=== PATIENT | female | born 2000 | race Asian ===

== ENCOUNTER 2019-08-10 12:18 | Inpatient (IN) ==
[2019-08-10] MEDS ORDERED: DEXAMETHASONE **PF** INJ 10 MG/ML VIAL IV ONE (12:38)
[2019-08-10] MEDS ORDERED: AMPICILLIN/SULBACTAM SOD 3,000 MG in 0.9 % SODIUM CHLORIDE 100 ML IV STA (12:39)
[2019-08-10] MEDS ORDERED: SODIUM CHLORIDE 0.9% 1000ML 1,000 ML IV SCH (12:45)
--- NOTE | 2019-08-10 12:48 | Emergency Department Note ---
History of Present Illness General Chief complaint: Sore Throat Stated complaint: SORETHROAT Time Seen by Provider: 08/10/19 12:25 History of Present Illness Maximum Pain Intensity: 4 This is a 18-year-old female that presents to the emergency department via private vehicle with complaints of "sore throat". The patient notes that she began with a sore throat about 1 week ago. No trauma or injury. She states that she was doing well with bilateral sore throat and then on the second or third day into the illness she began with some right sided pain rather than left side. She states that then it hurt to swallow and beginning 2 days ago the pain really increased and now she notes she has been drooling at nighttime. She has had decreased appetite secondary to this. She is able to manage secretions. She denies any recent travel. She states that she lives alone and has tried to stay at her residence for the past month and has not traveled or gone out in public. No trouble breathing. She also notes right-sided ear pain. No fevers, chills, coughing, abdominal pain, chest pain or shortness of breath. Pain is increased in the throat with swallowing. She also notes pain to the right anterior side of the neck. No dental pain at this time. Overall discomfort is a 4/10. She denies any pertinent past medical history, surgeries or allergies. She has been using Advil and Tylenol some mild relief. No history of peritonsillar abscess. She called [facility] and was instructed to come here. She does feel anxious. Home Medications Home Medications Medication Instructions Recorded Confirmed Type No Known Home Medications 08/10/19 08/10/19 History Allergies Allergy/AdvReac Type Severity Reaction Status Date / Time No Known Allergies Allergy Unverified 08/10/19 12:58 Past Med/Surg History Medical History (Updated 08/10/19 @ 12:45 by Sahil Donnelly PA-C) No pertinent past medical history Surgical History No pertinent past surgical history Social History Feels Safe at Home: Yes Smoking Status: Never smoker Review of Systems A total of 10 systems reviewed and were otherwise negative Physical Exam Vital Signs Vital Signs - 24 hr 08/10/19 12:21 08/10/19 14:18 Temperature 37.2 C Temperature Source Oral Pulse Rate 109 H Pulse Rate [Left Finger] 98 H Pulse Rhythm Regular Pulse Rhythm [Left Finger] Regular Pulse Strength Normal Pulse Strength [Left Finger] Normal Respiratory Rate 18 20 Respiratory Effort / Characteristics Non-Labored Spontaneous Non-Labored Spontaneous Respiratory Depth Normal Normal Respiratory Pattern Regular Blood Pressure 122/73 Blood Pressure [Right Arm] 111/69 Blood Pressure Mean 89 Blood Pressure Mean [Right Arm] 83 Blood Pressure Position Sitting Blood Pressure Position [Right Arm] Sitting Pulse Oximetry 97 99 Oxygen Delivery Method Room Air Room Air Sepsis Recent Fever Within 48 Hours No Sepsis Action Taken by Nursing No Action Required VITAL SIGNS - Vital signs and nursing notes were reviewed. Stable, mildly tachycardic. GENERAL -18-year-old female appearing her stated age who is in no acute distress. Communicates well with provider and answers questions appropriately. SKIN - Without rashes. No meningeal or petechial rash. HEAD - NC/AT. EYES - PERRL with EOMI bilaterally. Sclera anicteric. EARS - No deformities of external structures noted on gross examination bilaterally. No evidence of otitis media. No TM perforation. NOSE - Midline and without cyanosis. No epistaxis or purulent drainage noted. Septum midline without deviation or septal hematoma noted. MOUTH/OROPHARYNX - Without perioral cyanosis. Buccal mucosa pink and moist and without leukoplakia. Tongue midline with equal elevation of palate bilaterally. There is right-sided 3+ tonsillar hypertrophy with slight deviation of the uvula to the left. There is mild right-sided soft palate involvement with erythema with mild edema. No exudate. The airway is widely patent. No evidence of Carlos's angina. NECK - Neck with FROM. Supple to palpation. Right-sided anterior cervical ly mphadenopathy noted. No nuchal rigidity. LUNGS - Chest wall symmetric without accessory muscle use, intercostals retractions, or central cyanosis. Normal vesicular breath sounds CTA B/L. No wheezes, rales, or rhonchi appreciated. CARDIAC - RRR with S1/S2. No murmur, rubs, or gallops appreciated. EXTREMITIES - No clubbing or peripheral cyanosis. No pretibial edema present. +5/5 strength noted in UE/LE bilaterally. NEUROLOGIC - Cranial nerves II through XII grossly intact. Sensory intact to light touch throughout. PSYCH - A&O, and cooperates fully with examiner. Pt is very pleasant and interac ts well with examiner. Course Administered Medications Ioversol (Optiray 320 100ml) 94 ml IV ONCE PRN PRN Reason: Interaction Checking Stop: 08/14/19 13:43 Last Admin: 08/10/19 13:45 Dose: 94 ml Documented by: [id number] Discontinued Medications Dexamethasone Sodium Phosphate (Decadron Pf) 10 mg IV NOW ONE Stop: 08/10/19 12:39 Last Admin: 08/10/19 12:49 Dose: 10 mg Documented by: [id number] Sodium Chloride (Nss 1000ml) 1,000 mls @ 999 mls/hr IV .Q1H1M KANDICE Stop: 08/10/19 13:45 Last Infusion: 08/10/19 14:32 Dose: 0 mls/hr Documented by: [id number] Admin: 08/10/19 12:49 Dose: 999 mls/hr Documented by: [id number] Ampicillin Sodium/Sulbactam Sodium 3,000 mg/ Sodium Chloride 108 mls @ 200 mls/hr IV NOW STA; Protocol Stop: 08/10/19 13:11 Last Infusion: 08/10/19 14:32 Dose: 0 mls/hr Documented by: [id number] Admin: 08/10/19 13:06 Dose: 200 mls/hr Documented by: [id number] Medical Decision Making Laboratory Data Result diagrams: 08/10/19 12:44 08/10/19 12:44 Lab Results 08/10/19 08/10/19 08/10/19 Range/Units 12:44 12:44 12:44 WBC 12.06 H (4.8-10.8) K/uL RBC 4.38 (4.2-5.4) M/uL Hgb 13.5 (12.0-16.0) g/dL Hct 39.4 (37-47) % MCV 90.0 (80-100) fL MCH 30.8 (25-34) pg MCHC 34.3 (32-36) g/dL RDW Std Deviation 40.5 (36.4-46.3) fL RDW Coeff of Josiah 12.1 (11.5-14.5) % Plt Count 264 (130-400) K/uL MPV 10.3 (7.4-10.4) fL Immature Gran % (Auto) 0.2 % Neut % (Auto) 77.5 % Lymph % (Auto) 15.1 % [place] % (Auto) 4.2 % Eos % (Auto) 2.8 % Baso % (Auto) 0.2 % Immature Gran # (Auto) 0.02 (0.00-0.02) K/uL Neut # (Auto) 9.34 H (1.4-6.5) K/uL Lymph # (Auto) 1.82 (1.2-3.4) K/uL [place] # (Auto) 0.51 (0.11-0.59) K/uL Eos # (Auto) 0.34 (0-0.5) K/uL Baso # (Auto) 0.03 (0-0.2) K/uL Sodium 140 (136-145) mmol/L Potassium 4.0 (3.5-5.1) mmol/L Chloride 107 (98-107) mmol/L Carbon Dioxide 29 (21-32) mmol/L Anion Gap 4.0 (3-11) BUN 11 (7-18) mg/dl Creatinine 0.65 (0.6-1.2) mg/dl Est Cr Clr Drug Dosing 124.2 ml/min Est GFR ( Amer) 148.1 Est GFR (Non-Af Amer) 127.8 BUN/Creatinine Ratio 17.6 (10-20) Glucose 94 (70-99) mg/dl Calcium 9.9 (8.5-10.1) mg/dl Total Bilirubin 0.4 (0.2-1) mg/dl AST 11 L (15-37) U/L ALT 20 (12-78) U/L Alkaline Phosphatase 46 (45-117) U/L Total Protein 8.7 H (6.4-8.2) gm/dl Albumin 4.2 (3.4-5.0) gm/dl Globulin 4.5 H (2.5-4.0) gm/dl Albumin/Globulin Ratio 0.9 (0.9-2) POC Ur Test (NEG) Monoscreen Negative (Negative) 08/10/19 Range/Units 14:00 WBC (4.8-10.8) K/uL RBC (4.2-5.4) M/uL Hgb (12.0-16.0) g/dL Hct (37-47) % MCV (80-100) fL MCH (25-34) pg MCHC (32-36) g/dL RDW Std Deviation (36.4-46.3) fL RDW Coeff of Josiah (11.5-14.5) % Plt Count (130-400) K/uL MPV (7.4-10.4) fL Immature Gran % (Auto) % Neut % (Auto) % Lymph % (Auto) % [place] % (Auto) % Eos % (Auto) % Baso % (Auto) % Immature Gran # (Auto) (0.00-0.02) K/uL Neut # (Auto) (1.4-6.5) K/uL Lymph # (Auto) (1.2-3.4) K/uL [place] # (Auto) (0.11-0.59) K/uL Eos # (Auto) (0-0.5) K/uL Baso # (Auto) (0-0.2) K/uL Sodium (136-145) mmol/L Potassium (3.5-5.1) mmol/L Chloride (98-107) mmol/L Carbon Dioxide (21-32) mmol/L Anion Gap (3-11) BUN (7-18) mg/dl Creatinine (0.6-1.2) mg/dl Est Cr Clr Drug Dosing ml/min Est GFR ( Amer) Est GFR (Non-Af Amer) BUN/Creatinine Ratio (10-20) Glucose (70-99) mg/dl Calcium (8.5-10.1) mg/dl Total Bilirubin (0.2-1) mg/dl AST (15-37) U/L ALT (12-78) U/L Alkaline Phosphatase (45-117) U/L Total Protein (6.4-8.2) gm/dl Albumin (3.4-5.0) gm/dl Globulin (2.5-4.0) gm/dl Albumin/Globulin Ratio (0.9-2) POC Ur Test NEG (NEG) Monoscreen (Negative) Imaging Data Radiologist's Impression: CT SCAN OF THE NECK WITH IV CONTRAST CLINICAL HISTORY: Right-sided tonsillar pain. Tonsillar hypertrophy. COMPARISON STUDY: No priors. TECHNIQUE: Following the IV administration of 94 cc of Optiray 320, CT scan of the soft tissues of the neck was performed from the skull base to the upper chest. Images are reviewed in the axial, sagittal, and coronal planes. IV contrast was administered without complication. A dose lowering technique was utilized adhering to the principles of ALARA. CT DOSE: 340.24 mGy.cm FINDINGS: Pharynx: The right tonsils are enlarged and heterogeneous. There is phlegmonous change with a 1.4 cm peritonsillar abscess seen on image #138. This mildly narrows the adjacent airway. The left tonsils are heterogeneous with no abscess seen. There is no evidence of mass lesion. The vocal cords are symmetric. The parapharyngeal fat is maintained. The prevertebral/retropharyngeal soft tissues are within normal limits. The epiglottis is normal. Lymphadenopathy: Mildly enlarged right cervical lymph nodes measure up to 1.9 cm in length. These are likely on a reactive basis. Thyroid: There are 2 subcentimeter low-attenuation nodules in the right lobe of the thyroid gland. The thyroid gland is normal in size and attenuation. Salivary glands: The parotid and submandibular glands are within normal limits. Brain parenchyma: The visualized brain parenchyma at the skull base is normal in appearance. Vascular structures: The carotid arteries and jugular veins are patent. Skeletal structures: Imaged portions of the calvarium at the skull base are within normal limits. The cervical spine appears intact. Sinuses and mastoids: Small retention cysts in the maxillary antra measure up to 1.8 cm. The visualized paranasal sinuses are otherwise clear. The mastoid air cells are well pneumatized. Lung apices: Visualized apical lung parenchyma is clear. IMPRESSION: 1. There is a 1.4 cm right peritonsillar abscess with surrounding inflammation and phlegmonous change. 2. This mildly narrows the adjacent airway. 3. Mildly enlarged right cervical lymph nodes are likely on a reactive basis. ACT 112: Negative or not required by law. Electronically signed by: Rafat Holt M.D. 08/10/2019 2:04 PM [facility] Narrative Patient was seen and evaluated as above in room in room C6. Review was performed of nursing notes and vital signs. No previous past medical, surgical or allergy history. After obtaining a thorough history and physical examination the above work up was performed. Patient presents to us today with a sore throat x1 week now with strictly unilateral involvement on the right. There is 3+ tonsillar hypertrophy with some soft palate involvement which is mild. No trismus. Patient notes some drooling at nighttime. Patient believes her voice is "muffled" and I also agree with on examination. No recent travel. No other risk for coronavirus. She denies any other pertinent symptoms. IV access was established. She was hydrated with fluids, given IV Decadron as well as antibiotics. This was secondary to presentation and tachycardic state. Basic labs were also drawn. Rapid strep and mono were also obtained. She declined analgesics. Strep test negative, culture pending. Given the patient's presentation here today I did elect to discuss the findings with the on-call ENT doctor, Dr. Benavidez. We discussed the case and a CT scan soft tissue neck with contrast was recommended. This was ordered. Results as above. There is a small abscess. I we discussed the findings with Dr. Benavidez at this time medical management the admission to the hospital is recommended with IV Unasyn and IV Decadron. He recommended 8 mg of Decadron IV every 8 hours. He notes that he can be called with any questions or concerns. Case then discussed with the hospitalist. Please refer to further documentation regarding her stay. While in the department, I personally reevaluated the patient several times and each time the patient was found to be resting comfortably. The patient was educated upon management, educated upon todays findings/results. In the evaluation and treatment of this patient the following differential diagnoses were entertained: Strep pharyngitis, viral pharyngitis, allergic rhinitis with post nasal drip, airway obstruction, head/neck neoplasias, GERD, peritonisllar abscess, epiglottitis, cajp-fvun-ano-mouth disease, herpes simplex, mononucleosis, pneumonia, retropharyngeal abscess, scarlet fever, among others. Impression & Plan Abscess, peritonsillar, Change in voice, Sore throat Discharge Plan Visit Data Chief Complaint: Sore Throat Stated Complaint: SORETHROAT ED Provider: Rafat Hanson ED Midlevel Provider: Sahil Donnelly Discharge Problem: Abscess, peritonsillar, Change in voice, Sore throat Patient Disposition: Admitted As Inpatient Condition: Good Forms Stand Alone Forms: My [facility] Prescriptions Prescriptions: No Action No Known Home Medications RF: 0 Referrals [facility]errals: [facility] [Primary Care Provider] -
[2019-08-10 12:56] LABS: Basophils # (auto) 0.03 K/uL (0-0.2); Basophils % (auto) 0.2 %; Eosinophils # (auto) 0.34 K/uL (0-0.5); Eosinophils % (auto) 2.8 %; Hematocrit (blood only) 39.4 % (37-47); Hemoglobin 13.5 g/dL (12.0-16.0); Immature Granulocytes # (auto) 0.02 K/uL (0.00-0.02); Immature Granulocytes % (auto) 0.2 %; Lymphocytes # (auto) 1.82 K/uL (1.2-3.4); Lymphocytes % (auto) 15.1 %; Mean Corpuscular Hemoglobin 30.8 pg (25-34); Mean Corpuscular Hgb Conc 34.3 g/dL (32-36); Mean Platelet Volume 10.3 fL (7.4-10.4); Monocytes # (auto) 0.51 K/uL (0.11-0.59); Monocytes % (auto) 4.2 %; Neutrophils # (auto) 9.34 K/uL (1.4-6.5); Neutrophils % (auto) 77.5 %; Platelet Count 264 K/uL (130-400); RDW Coefficient of Variation 12.1 % (11.5-14.5); RDW Standard Deviation 40.5 fL (36.4-46.3); Red Blood Count 4.38 M/uL (4.2-5.4); White Blood Count 12.06 K/uL (4.8-10.8)
[2019-08-10 13:12] LABS: Albumin Level 4.2 gm/dl (3.4-5.0); BUN Creatinine Ratio 17.6 (10-20); Calcium 9.9 mg/dl (8.5-10.1); Creatinine Clr Calc Pharmacy 124.2 ml/min; Est GFR (African American) 148.1; Est GFR (Non-African American) 127.8
[2019-08-10 13:15] LABS: Albumin Globulin Ratio 0.9 (0.9-2); Bilirubin,Total 0.4 mg/dl (0.2-1); Globulin 4.5 gm/dl (2.5-4.0); Total Protein 8.7 gm/dl (6.4-8.2)
[2019-08-10] MEDS ORDERED: IOVERSOL 100ml IV PRN (13:44)
--- NOTE | 2019-08-10 14:05 | CT Scan Report ---
CT SCAN OF THE NECK WITH IV CONTRAST CLINICAL HISTORY: Right-sided tonsillar pain. Tonsillar hypertrophy. COMPARISON STUDY: No priors. TECHNIQUE: Following the IV administration of 94 cc of Optiray 320, CT scan of the soft tissues of e neck was performed from the skull base to the upper chest. Images are reviewed in the axial, sagitt al, and coronal planes. IV contrast was administered without complication. A dose lowering techniqu e was utilized adhering to the principles of ALARA. CT DOSE: 340.24 mGy.cm FINDINGS: Pharynx: The right tonsils are enlarged and heterogeneous. There is phlegmonous change with a 1.4 cm peritonsillar abscess seen on image #138. This mildly narrows the adjacent airway. The left tonsils a re heterogeneous with no abscess seen. There is no evidence of mass lesion. The vocal cords are symme tric. The parapharyngeal fat is maintained. The prevertebral/retropharyngeal soft tissues are within normal limits. The epiglottis is normal. Lymphadenopathy: Mildly enlarged right cervical lymph nodes measure up to 1.9 cm in length. These are likely on a reactive basis. Thyroid: There are 2 subcentimeter low-attenuation nodules in the right lobe of the thyroid gland. e thyroid gland is normal in size and attenuation. Salivary glands: The parotid and submandibular glands are within normal limits. Brain parenchyma: The visualized brain parenchyma at the skull base is normal in appearance. Vascular structures: The carotid arteries and jugular veins are patent. Skeletal structures: Imaged portions of the calvarium at the skull base are within normal limits. The cervical spine appears intact. Sinuses and mastoids: Small retention cysts in the maxillary antra measure up to 1.8 cm. The visualiz ed paranasal sinuses are otherwise clear. The mastoid air cells are well pneumatized. Lung apices: Visualized apical lung parenchyma is clear. IMPRESSION: 1. There is a 1.4 cm right peritonsillar abscess with surrounding inflammation and phlegmonous change . 2. This mildly narrows the adjacent airway. 3. Mildly enlarged right cervical lymph nodes are likely on a reactive basis. ACT 112: Negative or not required by law. Electronically signed by: Rafat Holt M.D. 08/10/2019 2:04 PM
[2019-08-10] MEDS ORDERED: STAT IV Infusion **Titration per Protocol STA (14:09)
[2019-08-10] MEDS ORDERED: dilTIAZem HCl 5 MG/ML 5 ML VIAL IV STA (14:09)
[2019-08-10] MEDS ORDERED: dilTIAZem HCL 125 MG in DEXTROSE 5% 100 ML IV SCH (14:15)
[2019-08-10] MEDS ORDERED: ACETAMINOPHEN 325 MG TAB PO PRN (15:28)
[2019-08-10] MEDS ORDERED: ONDANSETRON INJ 2 MG/ML 2 ML VIAL IV PRN (15:28)
--- NOTE | 2019-08-10 15:38 | History & Physical Report ---
Date of Service August 10, 2019 Assessment & Plan (1) Abscess, peritonsillar: - Admit to PCU, no needs for ICU at this time with no airway compromise - Patient with hot potato voice, drooling, difficulty swallowing, dysphagia - Administered a dose of Unasyn as well as dexamethasone in the ER, will continue these -ENT was contacted, in light of COVID-19 limited availability--> made recommendations over the phone to ER PA -Continue IV antibiotics with Unasyn, consider repeat imaging of CT tomorrow to ensure improvement, CT reveals 1.4 cm peritonsillar abscess, mildly narrows the adjacent airway. enlarged right cervical lymph nodes. -WBC = 12 K, follow a.m. 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 She reports it feels very sore on the right backside of her throat and has had difficulty eating food within the past day, and difficulty with swallowing thin liquids at times. She denies any difficulty breathing, shortness of breath, cough, loss of taste or smell or travel history. 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 ER contacted ENT for possible I&D however their service is working on limited service capability in light of COVID-19. Patient was started on IV Unasyn as well as dexamethasone 10 mg IV. She reports that after these medications were administered she does feel somewhat improved at this point. Denies any fevers chills or sweats. No other acute symptoms. Allergies Allergy/AdvReac Type Severity Reaction Status Date / Time No Known Allergies Allergy Unverified 08/10/19 12:58 Home Medications Home Medications Medication Instructions Recorded Confirmed Type No Known Home Medications 08/10/19 08/10/19 History Past Med/Surg History Medical History No pertinent past medical history Surgical History No pertinent past surgical history Family History (Updated 08/10/19 @ 17:54 by Ana Garcia MD) Other Family history non-contributory Social History Preferred Language: Noemi Albanian Communication Ability: Effective Beliefs That Will Affect Care: None Current Living Situation: Alone Other Information That Helps Us Care for You: No Feels Safe at Home: Yes Safety Concerns: Feels Safe At This Time Smoking Status: Never smoker Hx Alcohol Use: No Hx Substance Use: No Review of Systems Review of Systems: Constitutional: No fever, sweats or chills Eyes: No diplopia, no worsening or blurred vision ENT: normal hearing, + Pain with swallowing, increased swelling in the right posterior throat Respiratory: No cough, sputum, dyspnea at rest or on exertion Cardiovascular: No chest pain, tightness or palpitations Abdomen: No pain, nausea, vomiting, diarrhea or constipation Musculoskeletal: No joint pain, calf pain, swelling Neurologic: No weakness, numbness/tingling, or balance problems Psychiatric: No anxiety or depression Skin: No rash or itch Physical Exam Physical Exam: General: awake, alert, no apparent distress Head: Normocephalic, atraumatic ENT: PERRL, EOMI, no pharyngeal exudate, + right peritonsillar edema does not cross the midline, +uvula is midline, no purulent material draining from region of edema. + pain and edema with palpation along the ant cervical chain. Chest: Clear to auscultation, on room air, no adventitious breath sounds Cardiac: Regular rate and rhythm, no murmur, no JVD, normal peripheral pulses, good capillary refill Abdominal: NABS x 4 quadrants, soft, nontender to palpation, no rebound, guarding or tenderness Extremities: Normal inspection, no peripheral edema or erythema, calfs nontender to palpation Psych: Normal mood and affect Neuro: AAO x 3, strength intact bilaterally and rated 5/5, no motor deficits, sp eech is clear, no peripheral sensory deficits Results & Data Results & Data ([facility]) Vital Signs (Past 12 Hours) Vital Signs Temp Pulse Pulse Resp BP BP Pulse Ox 08/10/19 14:18 98 H 20 111/69 99 08/10/19 12:21 37.2 C 109 H 18 122/[address] SCAN OF THE NECK WITH IV CONTRAST CLINICAL HISTORY: Right-sided tonsillar pain. Tonsillar hypertrophy. COMPARISON STUDY: No priors. TECHNIQUE: Following the IV administration of 94 cc of Optiray 320, CT scan of the soft tissues of the neck was performed from the skull base to the upper chest. Images are reviewed in the axial, sagittal, and coronal planes. IV contrast was administered without complication. A dose lowering technique was utilized adhering to the principles of ALARA. CT DOSE: 340.24 mGy.cm FINDINGS: Pharynx: The right tonsils are enlarged and heterogeneous. There is phlegmonous change with a 1.4 cm peritonsillar abscess seen on image #138. This mildly narrows the adjacent airway. The left tonsils are heterogeneous with no abscess seen. There is no evidence of mass lesion. The vocal cords are symmetric. The parapharyngeal fat is maintained. The prevertebral/retropharyngeal soft tissues are within normal limits. The epiglottis is normal. Lymphadenopathy: Mildly enlarged right cervical lymph nodes measure up to 1.9 cm in length. These are likely on a reactive basis. Thyroid: There are 2 subcentimeter low-attenuation nodules in the right lobe of the thyroid gland. The thyroid gland is normal in size and attenuation. Salivary glands: The parotid and submandibular glands are within normal limits. Brain parenchyma: The visualized brain parenchyma at the skull base is normal in appearance. Vascular structures: The carotid arteries and jugular veins are patent. Skeletal structures: Imaged portions of the calvarium at the skull base are within normal limits. The cervical spine appears intact. Sinuses and mastoids: Small retention cysts in the maxillary antra measure up to 1.8 cm. The visualized paranasal sinuses are otherwise clear. The mastoid air cells are well pneumatized. Lung apices: Visualized apical lung parenchyma is clear. IMPRESSION: 1. There is a 1.4 cm right peritonsillar abscess with surrounding inflammation and phlegmonous change. 2. This mildly narrows the adjacent airway. 3. Mildly enlarged right cervical lymph nodes are likely on a reactive basis. ACT 112: Negative or not required by law. Electronically signed by: Rafat Holt M.D. 08/10/2019 2:04 PM Code Status & VTE Plan Code Status Full code - discussed with the pt at bedside Supervising Physician Co-Signing Physician Notes PA Supervision Note: I personally saw and examined the patient. I verified all loco points and agree with PHIL Suero with the following exceptions and/or additions: Pt presents with one week of worsening right sided sore throat and excesive drooling, difficulty with swallowing and painful swallowing in the last day. No fevers/chills at home but was taking ibuprofen and APAP for pain. Had a mild headache and now improved. History reviewed-only suspected PCOS, has irregular menses ROS-no SOB or cough, no ches tpain, no abd pain, no N/V/D, no rashes Vitals reviewed NAD, AAOx3 HEENT: anicteric sclerae, EOMI, OP with +right sided tonsillar enlargement and erythema with deviation of uvula to the left slightly, no exudate, airway appears patent, no stridor, no pain with neck extension; +Right sided cervical tender lymphadenopathy, no neck stiffness; no rhinorrhea CV: RRR no mgr CTAB no wcr Abd +BS soft NT ND Ext no edema Skin no rashes Labs and CT images personally reviewed 18 yo female here with a right sided SUPERVISOR DAIRY SANITATION, proven on CT without significant airway compromise -already improving since administration of IV Decadron and Unasyn in ER -continue Decadron, Unasyn and follow clinically -if not improving or worsening, will ask ENT to come in for needle aspiration and/or tonsillectomy PG Care Time/CCT Total # of Minutes Spent Total Time Spent with Patient: Total time spent is greater than 50% in coordination of care (as documented) at patient's floor/unit and/or counseling patient: Coding Level of Care Code 13731 Initial Inpt Care Lvl 3 Diagnoses Abscess, peritonsillar J36 Leukocytosis D72.829 DVT prophylaxis Z29.9
[2019-08-10] MEDS: SODIUM CHLORIDE 0.9% 1000ML 1,000 ML IV SCH (17:00)
[2019-08-10] MEDS: AMPICILLIN/SULBACTAM SOD 1,500 MG in 0.9 % SODIUM CHLORIDE 100 ML IV SCH (20:52)
[2019-08-10] MEDS: DEXAMETHASONE SOD PHOSPHATE 8 MG in SYRINGE 0 ML IV SCH (20:52)
[2019-08-10] MEDS ORDERED: DEXAMETHASONE SOD PHOSPHATE 4 MG in SYRINGE 0 ML IV SCH (21:00)
[2019-08-10] MEDS ORDERED: DEXAMETHASONE SOD INJ 4 MG/ML VIAL IV SCH ×2 (21:00→22:00)
[2019-08-11] MEDS: SODIUM CHLORIDE 0.9% 1000ML 1,000 ML IV SCH (02:27)
[2019-08-11] MEDS: AMPICILLIN/SULBACTAM SOD 1,500 MG in 0.9 % SODIUM CHLORIDE 100 ML IV SCH ×4 (02:27→20:21)
[2019-08-11] MEDS: DEXAMETHASONE SOD PHOSPHATE 8 MG in SYRINGE 0 ML IV SCH ×3 (06:05→20:55)
[2019-08-11 06:32] LABS: Hematocrit (blood only) 36.5 % (37-47); Hemoglobin 12.6 g/dL (12.0-16.0); Mean Corpuscular Hemoglobin 30.4 pg (25-34); Mean Corpuscular Hgb Conc 34.5 g/dL (32-36); Mean Corpuscular Volume 88.2 fL (80-100); Mean Platelet Volume 10.4 fL (7.4-10.4); Platelet Count 272 K/uL (130-400); RDW Standard Deviation 38.4 fL (36.4-46.3); Red Blood Count 4.14 M/uL (4.2-5.4); White Blood Count 12.01 K/uL (4.8-10.8)
[2019-08-11 07:10] LABS: Alanine Aminotransferase 22 U/L (12-78); Albumin Level 3.5 gm/dl (3.4-5.0); Aspartate Aminotransferase 11 U/L (15-37); BUN Creatinine Ratio 16.8 (10-20); Blood Urea Nitrogen 9 mg/dl (7-18); Calcium 9.3 mg/dl (8.5-10.1); Carbon Dioxide 25 mmol/L (21-32); Chloride 109 mmol/L (98-107); Creatinine Clr Calc Pharmacy 230.4 ml/min; Est GFR (African American) > 150.0; Est GFR (Non-African American) 136.7; Glucose 129 mg/dl (70-99); Potassium 3.7 mmol/L (3.5-5.1); Sodium 140 mmol/L (136-145)
[2019-08-11 07:13] LABS: Albumin Globulin Ratio 0.9 (0.9-2); Alkaline Phosphatase 41 U/L (45-117); Bilirubin,Total 0.3 mg/dl (0.2-1); Globulin 4.1 gm/dl (2.5-4.0); Total Protein 7.6 gm/dl (6.4-8.2)
--- NOTE | 2019-08-11 10:37 | Hospitalist Progress Note ---
Date of Service August 11, 2019 Assessment & Plan (1) Abscess, peritonsillar: CT reveals 1.4 cm peritonsillar abscess, mildly narrows the adjacent airway. enlarged right cervical lymph nodes. 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 Still some pain in the throat and if she tries to open her mouth wide, however much improved overall. No headache, no trouble with eating regular food. Afebrile. Has a dry cough only when throat feels irritated. Completed a virtual consult today with ENT Dr. Benavidez in the room with patient and discussed on phone with him-recommends continuing IV abx and Decadron and one more night's stay in the hospital. Review of Systems Review of Systems: All systems reviewed & are unremarkable except as noted in HPI & below (no diarrhea or nausea; dyspepsia with receiving steroids) Physical Exam Constitutional: WD/WN, vitals as above Eyes: + anicteric sclerae ENMT: Ears: no external ear abnormality Nose: no external nose abnormality Mouth: + oropharynx abnormality (rt tonsil mild erythema and enalrgement, much improved from previous) Throat: uvula midline no exudate Neck: trachea midline, no thyromegaly Respiratory: normal respiratory effort, lungs clear to auscultation Cardiovascular: RRR, no murmur, no edema Chest (Breasts): Chest: normal inspection of chest Gastrointestinal (Abdomen): normal bowel sounds, soft, nontender, no hepatosplenomegaly Musculoskeletal: Extremities: extremities normal to inspection; no cyanosis and no clubbing Skin: no rashes, warm and dry Neurologic: moves all extremities and awake; no focal motor deficits Psychiatric: A+Ox3, euthymic affect Lymphatic: + cervical lymphadenopathy (+right sided); no lymphedema Results & Data Results & Data ([facility]) Vital Signs (Past 12 Hours) Vital Signs Temp Pulse Pulse Resp BP BP Pulse Ox 08/11/19 08:00 85 08/11/19 07:06 36.3 C L 69 18 99/67 L 98 08/11/19 03:50 36.7 C 71 16 98/59 L 98 08/10/19 23:56 36.9 C 84 17 111/71 97 Laboratory Results 08/11/19 08/11/19 Range/Units 06:05 06:05 WBC 12.01 H (4.8-10.8) K/uL RBC 4.14 L (4.2-5.4) M/uL Hgb 12.6 (12.0-16.0) g/dL Hct 36.5 L (37-47) % MCV 88.2 (80-100) fL MCH 30.4 (25-34) pg MCHC 34.5 (32-36) g/dL RDW Std Deviation 38.4 (36.4-46.3) fL RDW Coeff of Josiah 12.0 (11.5-14.5) % Plt Count 272 (130-400) K/uL MPV 10.4 (7.4-10.4) fL Sodium 140 (136-145) mmol/L Potassium 3.7 (3.5-5.1) mmol/L Chloride 109 H (98-107) mmol/L Carbon Dioxide 25 (21-32) mmol/L Anion Gap 6.0 (3-11) BUN 9 (7-18) mg/dl Creatinine 0.53 L (0.6-1.2) mg/dl Est Cr Clr Drug Dosing 230.4 ml/min Est GFR ( Amer) > 150.0 Est GFR (Non-Af Amer) 136.7 BUN/Creatinine Ratio 16.8 (10-20) Glucose 129 H (70-99) mg/dl Calcium 9.3 (8.5-10.1) mg/dl Total Bilirubin 0.3 (0.2-1) mg/dl AST 11 L (15-37) U/L ALT 22 (12-78) U/L Alkaline Phosphatase 41 L (45-117) U/L Total Protein 7.6 (6.4-8.2) gm/dl Albumin 3.5 (3.4-5.0) gm/dl Globulin 4.1 H (2.5-4.0) gm/dl Albumin/Globulin Ratio 0.9 (0.9-2) Throat culture pending PG Care Time/CCT Total # of Minutes Spent Total Time Spent with Patient: Total time spent is greater than 50% in coordination of care (as documented) at patient's floor/unit and/or counseling patient: Coding Level of Care Code 71007 Subseq Hosp Care Lvl 2 Diagnoses Abscess, peritonsillar J36 Leukocytosis D72.829 Dyspepsia R10.13 DVT prophylaxis Z29.9
[2019-08-11] MEDS: FAMOTIDINE 20 MG TAB PO SCH ×2 (11:05→20:23)
--- NOTE | 2019-08-11 12:06 | ENT Consultation ---
Date of Consultation August 11, 2019 Assessment & Plan (1) Abscess, peritonsillar: Patient with right peritonsillar phlegmon vs early abscess who has improved fairly dramatically with IV antibiotic and steroids. would continue IV unasyn 3g and continue decadron 8mg q8hrs if improved again tomorrow, would recommend discharge home on oral antibiotic and oral steroids no need for repeat imaging if continues to improve clinically. Present on Admission?: Yes History of Present Illness Reason for Consultation: Peritonsillar abscess/vsphlegmon Attending Physician: Ana Garcia MD History of Present Illness THIS WAS A TELEMEDICINE CONSULTATION. Patient is a 18 yo female who has a one week history of sore throat. She stayed in her apartment during this time with no sick contacts. She did not seek medical attention either. She was seen at [facility] yesterday who recommended she go to the ED for possible peritonsillar abscess. In the ED a CT scan was done which showed a 1.4cm phlegmonous change vs early abscess on the right hand side. ED contacted ENT for further recommendation. I recommended the patient be admitted to medical service for IV antibiotics and IV steroids due to the small size of the phlegmonous vs early abscess change. She was admitted yesterday afternoon. This morning via conversation via telemedicine she is feeling much better. States that she feels 75% better than at the time of initial presentation. Her dysphagia is improved, sore throat also improved. States her trismus she had yesterday is improved as well. She is afebrile. Allergies Allergy/AdvReac Type Severity Reaction Status Date / Time No Known Allergies Allergy Unverified 08/10/19 12:58 Home Medications Home Medications Medication Instructions Recorded Confirmed Type No Known Home Medications 08/10/19 08/10/19 History Patient History Medical History No pertinent past medical history Surgical History No pertinent past surgical history Family History (Updated 08/10/19 @ 17:54 by Ana Garcia MD) Other Family history non-contributory Social History Preferred Language: Noemi East Timorese Communication Ability: Effective Beliefs That Will Affect Care: None marital status: Single Current Living Situation: Alone Other Information That Helps Us Care for You: No Feels Safe at Home: Yes Safety Concerns: Feels Safe At This Time Smoking Status: Never smoker Hx Alcohol Use: No Hx Substance Use: No Review of Systems Review of Systems: All systems reviewed & are unremarkable except as noted in HPI & below Physical Exam Constitutional: WD/WN, vitals as above Eyes: EOM intact bilaterally ENMT: Uvula is midline, right tonsil is just slightly larger in appearance than the left via telemedical examination. Neck: normal visual inspection Results & Data ([facility]) Vital Signs (Past 12 Hours) Vital Signs Temp Pulse Pulse Resp BP Pulse Ox 08/11/19 11:21 36.9 C 73 17 103/69 98 08/11/19 08:00 85 08/11/19 07:06 36.3 C L 69 18 99/67 L 98 08/11/19 03:50 36.7 C 71 16 98/59 L 98
[2019-08-12] MEDS: AMPICILLIN/SULBACTAM SOD 1,500 MG in 0.9 % SODIUM CHLORIDE 100 ML IV SCH ×2 (01:48→07:37)
[2019-08-12] MEDS: DEXAMETHASONE SOD PHOSPHATE 8 MG in SYRINGE 0 ML IV SCH (05:54)
[2019-08-12] MEDS: FAMOTIDINE 20 MG TAB PO SCH (07:37)
--- NOTE | 2019-08-12 11:12 | Discharge Summary ---
Date of Service August 12, 2019 Admission HPI Per Admitting Provider This is a 18-year-old female without significant past medical history, who presented with worsening sore throat x1 week, increased throat soreness as well as difficulty swallowing, increased drooling x1 day. She reports it feels very sore on the right backside of her throat and has had difficulty eating food within the past day, and difficulty with swallowing thin liquids at times. She denies any difficulty breathing, shortness of breath, cough, loss of taste or smell or travel history. 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 ER contacted ENT for possible I&D however their service is working on limited service capability in light of COVID-19. Patient was started on IV Unasyn as well as dexamethasone 10 mg IV. She reports that after these medications were administered she does feel somewhat improved at this point. Denies any fevers chills or sweats. No other acute symptoms. Principal Diagnosis Peritonsillar abscess Discharge Exam Constitutional WD/WN, vitals as above Eyes + anicteric sclerae ENMT Ears: no external ear abnormality Nose: no external nose abnormality Mouth: + oropharynx abnormality (rt tonsil mild erythema and enalrgement, much improved from previous) Throat: uvula midline (and airway widely patent) Neck trachea midline, no thyromegaly Respiratory normal respiratory effort, lungs clear to auscultation Cardiovascular RRR, no murmur, no edema Chest (Breasts) Chest: normal inspection of chest Gastrointestinal (Abdomen) normal bowel sounds, soft, nontender, no hepatosplenomegaly Musculoskeletal Extremities: extremities normal to inspection; no cyanosis and no clubbing Skin no rashes, warm and dry Neurologic moves all extremities and awake; no focal motor deficits Psychiatric A+Ox3, euthymic affect Lymphatic + cervical lymphadenopathy (+right sided); no lymphedema Discharge Data Allergies Allergy/AdvReac Type Severity Reaction Status Date / Time No Known Allergies Allergy Unverified 08/10/19 12:58 Consultations 08/10/19 14:30 ED Decision to Admit Stat 08/10/19 15:16 Consult Case Management - Discharge Planning Routine Ordered Studies 08/10/19 13:29 CT soft tissue neck w con Stat Hospital Course (1) Abscess, peritonsillar: Presented with sore throat, drooling, trismus CT reveals 1.4 cm peritonsillar abscess, mildly narrows the adjacent airway. Enlarged right cervical lymph nodes. 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 Benavidez on Virtual Visit) Discharge Plan Discharge Items Patient Disposition: Home - Self-Care Reason For Visit: PERITONSILLAR ABSCESS Discharge Diagnosis: Peritonsillar abscess Condition on Discharge: Good Activity: Resume your previous activity Non-emergency contact: Primary Care Provider and Surgeon Call non-emergency contact if: you have any medication questions, your symptoms worsen, your pain is not controlled, your pain is worsening, your pain is unusual for you, your pain is concerning for you, you have a fever and your temperature is above 101 Follow-up/Referrals: Prakash Benavidez DO [Physician] - (Dr. Benavidez's office will contact you for a follow up appointment.) [facility] [Primary Care Provider] - Diet: Regular Addtl Attending Provider Instructions: Finish out the Augmentin antibiotic one tablet twice daily for 12 more days and a slow taper down of prednisone over the next 12 days. You will take prednisone 60mg daily x 2 days and then decrease by 10mg every 2 days (50mg daily x 2 days, then 40mg daily x 2 days, etc.). Dr. Benavidez of ENT Surgery will contact you with a follow up appointment. Pending Studies at Discharge: Yes (Throat culture) Stand-Alone Forms: [facility] Medications and DC Order Prescriptions: New acetaminophen [Mapap (acetaminophen)] 325 mg Tablet 650 mg PO Q4H PRN (Reason: pain) Qty: 30 RF: 0 famotidine 20 mg Tablet 20 mg PO BID Qty: 28 RF: 0 amoxicillin-pot clavulanate [Augmentin] 875-125 mg tablet 1 tab PO BID Qty: 24 RF: 0 prednisone 10 mg tablet 60 mg PO DAILY Qty: 42 RF: 0 No Action No Known Home Medications RF: 0 Discharge Orders: Discharge Order (Routine); Ordered 08/12/19 Ordered By: Ana Garcia Admission Data Admit Date/Time: 08/10/19 15:15 Attending Provider: Ana Garcia Admit Provider: Ana Garcia Primary Care Provider: [place] Other Providers: Raphael Lopez Coding Level of Care Code D/C Day Management >30 mins Diagnoses Abscess, peritonsillar J36 Leukocytosis D72.829 Dyspepsia R10.13 DVT prophylaxis Z29.9
--- NOTE | 2019-08-12 12:04 | Ears,Nose,Throat Progress Note ---
Date of Service August 12, 2019 Assessment & Plan (1) Abscess, peritonsillar: Patient much improved today. Ok for discharge from ENT standpoint on Augmentin 875/125mg for 2 weeks in addition to prednsone taper starting at 60mg. my office will contact the patient in order to schedule follow up next week Present on Admission?: Yes Admission and Anticipated Discharge Date Admission Date: August 10, 2019 Subjective Patient feeling much better this am. Physical Exam Physical Exam: Exam via TELEMEDICINE revealed tonsils to be 2+ and symmetric. Uvula midline. Results & Data ([facility]) Vital Signs (Past 12 Hours) Vital Signs Temp Pulse Resp BP BP Pulse Ox 08/12/19 11:22 36.8 C 69 18 110/67 111/71 97 08/12/19 06:41 36.8 C 69 18 110/67 97
== END 2019-08-12 13:24 | disposition home or self-care (01) | DRG 153 ==
LOC: ED 12:18 → 2S 15:15 → 2W 08-11 17:47